=== PATIENT | male | born 1995 | race Caucasian/White ===

== ENCOUNTER 2021-02-07 07:23 | Day surgery (SDC) | payer BC, OTHER ==
[~2021-02-07 07:23] MED LIST: Lactated Ringers 1,000 ML IV SCH; Lidocaine 1%/Sod Bicarbonate in NS 8.4% 1 ML Syringe IDERM PRN; Midazolam 1 MG/ML 2 ML SDV ONE; Propofol 200 MG/20 ML SDV ONE; Sodium Chloride 0.9% 10 ML Syringe FLUSH PRN; fentaNYL 100 MCG/2 ML SDV ONE
--- NOTE | 2021-02-07 07:37 | PCM.PREANE ---
Preanesthetic Assessment - Procedure Proposed Procedure: egd colonoscopy Just got over covid- got it on jan 21- has a little cough - Anesthesia/Transfusion/Family Hx Anesthesia History: Prior Anesthesia Without Reaction Family History of Anesthesia Reaction: No Transfusion History: No Prior Transfusion(s) - Review of Systems General: No Symptoms Pulmonary: Cough (let over from covid) Cardiovascular: No Symptoms Gastrointestinal: Vomiting (with prep) Neurological: No Symptoms Other: Reports: Depression, Anxiety - Physical Assessment NPO Status Date: 02/06/21 NPO Status Time: 20:00 Vital Signs: 97.9 18 98% 87 154/75 Height: 5 ft 8 in Weight: 140 kg ASA Class: 3 Mental Status: Alert & Oriented x3 Airway Class: Mallampati = 2 Dentition: Reports: Normal Dentition Thyro-Mental Finger Breadths: 3 Mouth Opening Finger Breadths: 2 ROM/Head Extension: Full Lungs: Clear to Auscultation, Normal Respiratory Effort Cardiovascular: Regular Rate, Regular Rhythm - Allergies Allergies/Adverse Reactions: Allergies Allergy/AdvReac Type Severity Reaction Status Date / Time Sulfa (Sulfonamide Allergy Cannot Verified 02/06/21 09:34 Antibiotics) Remember - Blood Blood Available: No - Acknowledgements Anesthesia Type Planned: MAC Pt an Appropriate Candidate for the Planned Anesthesia: Yes Alternatives and Risks of Anesthesia Discussed w Pt/Guardian: Yes Pt/Guardian Understands and Agrees with Anesthesia Plan: Yes PreAnesthesia Questionnaire HEENT History: Reports: Impaired Vision Cardiovascular History: Reports: None Respiratory History: Reports: Sleep Apnea (cpap) Gastrointestinal History: Reports: GERD, Irritable Bowel Syndrome, Other (See Below) Other Gastrointestinal History: rectal bleeding, hematochezia Genitourinary History: Reports: None [employer]ATOR History: Reports: None Musculoskeletal History: Reports: None Neurological History: Reports: None Psychiatric History: Reports: Anxiety, Depression Endocrine/Metabolic History: Reports: Obesity/BMI 30+ Hematologic History: Reports: None Immunologic History: Reports: None Oncologic (Cancer) History: Reports: None Dermatologic History: Reports: None - Infectious Disease History Infectious Disease History: Reports: Novel Coronavirus - Past Surgical History Head Surgeries/Procedures: Reports: None HEENT Surgical History: Reports: Myringotomy w Tube(s), Oral Surgery Cardiovascular Surgical History: Reports: None Respiratory Surgical History: Reports: None GI Surgical History: Reports: None Female Surgical History: Reports: None Male Surgical History: Reports: None Endocrine Surgical History: Reports: None Neurological Surgical History: Reports: None Musculoskeletal Surgical History: Reports: None Oncologic Surgical History: Reports: None Dermatological Surgical History: Reports: None - SUBSTANCE USE Tobacco Use Status *Q: Current Every Day Tobacco User (marijuana) Tobacco Use Within Last Twelve Months: No Second Hand Smoke Exposure: Yes Days Per Week of Alcohol Use: 1 Recreational Drug Use History: Yes Recreational Drug Type: Reports: Marijuana/Hashish - HOME MEDS Home Medications: Home Meds Omeprazole Magnesium [Prilosec Otc] 20 mg PO DAILY 09/01/14 [History] - CURRENT (IN HOUSE) MEDS Current Meds: Current Medications Lactated Ringer's (Ringers, Lactated) 1,000 mls @ 125 mls/hr IV ASDIRECTED TAQUERIA Stop: 02/07/21 23:00 Lidocaine/Sodium Bicarbonate (Lidocaine 1%/Sod Bicarbonate In Ns 8.4% 1 Ml Syringe) 0.25 ml IDERM ONETIME PRN PRN Reason: Prior to IV Start Stop: 02/07/21 18:00 Sodium Chloride (Sodium Chloride 0.9% 10 Ml Syringe) 10 ml FLUSH ASDIRECTED PRN PRN Reason: Keep Vein Open Stop: 02/07/21 18:00 Discontinued Medications Fentanyl (Fentanyl 100 Mcg/2 Ml Sdv) Confirm Administered Dose 100 mcg .ROUTE .STK-MED ONE Stop: 02/07/21 07:15 Midazolam HCl (Midazolam 1 Mg/Ml 2 Ml Sdv) Confirm Administered Dose 2 mg .ROUTE .STK-MED ONE Stop: 02/07/21 07:15 Propofol (Propofol 200 Mg/20 Ml Sdv) Confirm Administered Dose 600 mg .ROUTE .STK-MED ONE Stop: 02/07/21 07:15
[2021-02-07] MEDS ORDERED: Albuterol 0.083% 2.5 MG/3 ML Neb Soln NEB ONE (07:46)
[2021-02-07] MEDS ORDERED: Midazolam 1 MG/ML 2 ML SDV ONE ×2 (08:27)
[2021-02-07] MEDS ORDERED: Propofol 200 MG/20 ML SDV ONE (08:30)
--- NOTE | 2021-02-07 09:06 | PCM48HPAN ---
Post Anesthesia Note - EVALUATION WITHIN 48HRS OF ANESTHETIC Vital Signs in Normal Range: Yes Patient Participated in Evaluation: Yes Respiratory Function Stable: Yes Airway Patent: Yes Cardiovascular Function Stable: Yes Hydration Status Stable: Yes Pain Control Satisfactory: Yes Nausea and Vomiting Control Satisfactory: Yes Mental Status Recovered: Yes Vital Signs: Last Vital Signs Temp 36.6 C 02/07/21 07:20 Pulse 87 02/07/21 07:20 Resp 18 02/07/21 07:20 BP 154/75 H 02/07/21 07:20 Pulse Ox 98 02/07/21 07:20
--- NOTE | 2021-02-07 10:05 | PROC ---
DATE OF OPERATION: 02/07/2021 SURGEON: Massiel Astudillo MD PREOPERATIVE DIAGNOSES: 1. Rectal bleeding. 2. History of reflux disease. POSTOPERATIVE DIAGNOSES: 1. Normal colon. 2. Gastritis and LA grade A esophagitis. OPERATION PERFORMED: 1. Esophagogastroduodenoscopy. 2. Colonoscopy. ANESTHESIA: Monitored anesthesia care. COMPLICATIONS: None. INDICATIONS AND CONSENT: Mr. Hernandez is a 25-year-old male, who has been having some intermittent rectal bleeding with bright red blood per stool. The patient also has history of GERD with heartburn and reflux. He has been taking omeprazole intermittently for this. He presented in clinic due to his history of rectal bleeding and reflux disease and was evaluated. He was deemed to be a candidate for EGD and colonoscopy for evaluation. Risks, benefits, and alternatives were discussed with the patient and informed consent was obtained. DESCRIPTION OF PROCEDURE: The patient was taken to the procedure room, placed in left lateral decubitus position. Bite block was placed and monitored anesthesia care was induced. Then, formal time-out was performed before the start of the procedure. We began the procedure with esophagogastroduodenoscopy. The scope was inserted into the mouth and taken all the way to the second portion of the duodenum. The second portion of the duodenum, first portion, and duodenal bulb were all normal. In the antrum, there appeared to be slight erythema a few centimeters from the pylorus. Biopsies were taken with cold forceps at this area for histological evaluation. Stomach body appeared to be normal. On retroflexion, there was a patch of inflammation in the fundus of the stomach, lateral wall. Biopsies were taken here with cold forceps as well. There was no indication for hiatal hernia and scope was taken to the GE junction, which was at 39 cm from incisors. There was LA grade A esophagitis at this level. Biopsies of the GE junction were taken with cold forceps for histologic exam. Once this was done, air was suctioned out from the stomach and scope was withdrawn slowly, examining the rest of the esophagus, which appeared to be normal. The patient tolerated the procedure well. After this, we turned our attention to the colonoscopy. Perianal exam and digital rectal exam were normal. Scope was inserted and taken all the way to the cecum. Appendiceal orifice and ileocecal valve were photographed. Prep was adequate for the exam. Scope was withdrawn slowly, examining the entirety of the colonic mucosa. There were a few areas that had some stool that was adherent to the colonic mucosa. This was probably about less than 5% of the colon. The rest of the colon was clear and was able to be examined and there were no polyps or any other visible sources of bleeding. In the rectum, retroflexion was performed and this area was photographed. There were no abnormalities here. Then, air was suctioned out from the rectum and scope was withdrawn, concluding this part of the procedure. Therefore, from this exam, the patient has mild gastritis, LA grade A esophagitis, and normal colon. No clear source of his hematochezia. The patient will be allowed to recover and return home to follow up in 2 weeks in clinic. [email or web address] /[id number] MTDDonis
[2021-02-07 10:13] VITALS: BP 134/61; PULSE 77
== END 2021-02-07 10:27 | disposition home or self-care (01) ==
LOC: JD.SDS 07:23
PROVIDERS: ATTEND Surgery
DX: K62.5 Hemorrhage of anus and rectum (principal); K29.50 Unspecified chronic gastritis without bleeding; K21.00 Gastro-esophageal reflux disease with esophagitis, without bleeding; G47.33 Obstructive sleep apnea (adult) (pediatric); I10 Essential (primary) hypertension; E66.9 Obesity, unspecified; Z88.2 Allergy status to sulfonamides; Z87.891 Personal history of nicotine dependence; Z98.890 Other specified postprocedural states; Z68.42 Body mass index [BMI] 45.0-49.9, adult
CPT/HCPCS: 43239; 45378; J2250; J2704; J3010; J7120; 00813

== ENCOUNTER 2024-05-20 20:55 | Emergency (ER) | payer OTHER ==
[2024-05-20 21:12] VITALS: BP 149/97; PULSE 108
[2024-05-20] MEDS: Lidocaine 1% 10 ML MDV INJECT ONE (21:34)
== END 2024-05-20 22:41 | disposition home or self-care (01) ==
LOC: JD.ED 20:55
DX: S71.111A Laceration without foreign body, right thigh, initial encounter (principal); K21.9 Gastro-esophageal reflux disease without esophagitis; E66.9 Obesity, unspecified; Z68.41 Body mass index [BMI] 40.0-44.9, adult; Z86.16 Personal history of COVID-19; Z79.899 Other long term (current) drug therapy; Z88.2 Allergy status to sulfonamides; W26.0XXA Contact with knife, initial encounter
CPT/HCPCS: 12001; 99282; J3490